=== PATIENT | female | born 1965 | race Caucasian/White ===

== ENCOUNTER 2021-02-05 09:15 | Emergency (ER) | payer BC ==
[2021-02-05 10:37] LABS: HEMOGLOBIN 13.4 gm/dl (12.3-15.3); RED BLOOD COUNT 4.54 M/UL (4.00-5.10); WHITE BLOOD COUNT 5.8 K/UL (4.5-11.0)
[2021-02-05] MEDS ORDERED: FLAGYL500 MG PO (13:22)
[2021-02-05] MEDS ORDERED: AUGMENTIN 875-1 EACH PO (13:22)
[2021-02-05] MEDS ORDERED: ZOFRAN ODT 4 MG4 MG SL (13:22)
[2021-02-05] MEDS ORDERED: BACTRIM 400-801 EACH PO (13:33)
== END 2021-02-05 13:58 | disposition home or self-care (01) ==
LOC: ER1 09:15
PROVIDERS: Physician Assistant
DX: A09 Infectious gastroenteritis and colitis, unspecified (principal); Z20.822 Contact with and (suspected) exposure to COVID-19
CPT/HCPCS: 80053; 81001; 83605; 83690; 85025; 86140; 99284; Q9967; U0002